=== PATIENT | male | born 1965 ===

== ENCOUNTER → 2022-12-07 08:00 | Outpatient (CLI) | payer OTHER | END | disposition home or self-care (01) | LOC: LAB 08:00 | PROVIDERS: ATTEND Radiology Diagnostic Radiology | DX: D37.9 Neoplasm of uncertain behavior of digestive organ, unspecified (principal) ==

== ENCOUNTER → 2022-12-07 | Outpatient (CLI) | payer BC | END | disposition home or self-care (01) | LOC: TOM 11:05 | PROVIDERS: ATTEND General Practice | DX: D37.9 Neoplasm of uncertain behavior of digestive organ, unspecified (principal); D13.1 Benign neoplasm of stomach; D37.1 Neoplasm of uncertain behavior of stomach ==